=== PATIENT | female | born 1960 | race Caucasian/White ===

== ENCOUNTER 2017-04-08 14:41 | Outpatient (CLI) | payer OTHER ==
[2017-04-08 16:34] LABS: ALT (SGPT) 19 U/L (8-55); AST (SGOT) 16 U/L (5-34); Albumin 3.8 g/dL (3.5-5.0); Alkaline Phosphatase 51 U/L (40-150); Anion Gap 17 mmol/L (10-20); BUN (Urea Nitrogen) 15 mg/dL (9.8-20.1); Bilirubin, Total 0.2 mg/dL (0.2-1.2); Calc. Creatinine Clearance 0 mL/min (70-130); Calcium 8.7 mg/dL (7.8-10.44); Carbon Dioxide 21 mmol/L (22-29); Cardiac Risk 4.2 (Less than 4.5); Chloride 104 mmol/L (98-107); Cholesterol 226 mg/dl (< 200 Desired); Estimated GFR-MDRD 79; Globulin 2.5 g/dL (2.4-3.5); Glucose 118 mg/dL (70-105); HDL Cholesterol 54 mg/dL (>60 Neg Risk); LDL Cholesterol, Calculated 121 mg/dL; Potassium 4.1 mmol/L (3.5-5.1); Protein, Total 6.3 g/dL (6.0-8.3); Sodium 138 mmol/L (136-145); Triglycerides 255 mg/dL (Less than 150)
[2017-04-08 16:46] LABS: Hemoglobin A1c 6.6 % (4.0-6.0)
[2017-04-08 18:25] LABS: Clarity Hazy (Clear); Specific Gravity, Urine 1.015 (1.005-1.030)
[2017-04-08 18:26] LABS: Bilirubin Negative (Negative); Blood, Urine Negative (Negative); Glucose, Urine (Dipstick) Negative (Negative); Leukocyte Negative (Negative); Nitrite Negative (Negative); Protein, Urine (Dipstick) Negative (Neg-Trace); Urobilinogen 0.2 mg/dL (0.2-1.0)
[2017-04-09 17:48] LABS: Hep C IgG Ab Non-Reactive (NonReactive); Hep C Index 0.21 S/CO (0-0.79)
== END 2017-04-08 14:42 | disposition home or self-care (01) ==
LOC: NAVSJIPCSP 14:41
PROVIDERS: ATTEND Internal Medicine
DX: E11.9 Type 2 diabetes mellitus without complications (principal); I10 Essential (primary) hypertension
CPT/HCPCS: 80053; 80061; 81003; 83036; 86803

== ENCOUNTER 2018-04-10 09:58 | Outpatient (CLI) | payer OTHER ==
--- NOTE | 2018-04-10 12:49 | CT ---
ABDOMEN AND PELVIC CT SCAN WITH AND WITHOUT IV CONTRAST: HISTORY: A 58-year-old female with a history of acute pyelonephritis, left lower quadrant pain and left flank pain. Prior cholecystectomy and hysterectomy. COMPARISON: 12/12/09. FINDINGS: Small old granuloma calcifications within the lung bases. Fatty changes in the liver. Status post c holecystectomy. Small hiatal hernia. No ductal dilatation. Pancreas, spleen, and adrenal glands ar e unremarkable. No evidence for a renal calculus or acute obstruction. No delay in contrast excr etion. There is a small 0.3 cm diameter calculus within the left ureterovesicular junction with some minimal adjacent edema and no significant proximal obstruction. Status post hysterectomy. No CT ev idence for acute appendicitis. IMPRESSION: Nonobstructing 0.3 cm diameter calculus at the ureterovesicular junction. Small hiatal hernia. No e vidence for other significant acute process. POS: [facility]
== END 2018-04-10 09:59 | disposition home or self-care (01) ==
LOC: NAV CT 09:58
PROVIDERS: ATTEND Internal Medicine
DX: N39.0 Urinary tract infection, site not specified (principal); N20.1 Calculus of ureter; K44.9 Diaphragmatic hernia without obstruction or gangrene; Z90.49 Acquired absence of other specified parts of digestive tract; Z90.710 Acquired absence of both cervix and uterus
CPT/HCPCS: 74178